=== PATIENT | male | born 1945 | race Native Hawaiian/Other Pacific Islander ===

== ENCOUNTER 2018-02-06 09:30 | Outpatient (CLI) | payer OTHER ==
[2018-02-06 09:45] LABS: PLATELET COUNT 294 K/uL (142-355)
[2018-02-06 10:08] LABS: POTASSIUM 4.1 mmol/L (3.6-5.2)
== END 2018-02-06 23:22 | disposition home or self-care (01) ==
LOC: LABW 09:30
PROVIDERS: Internal Medicine
DX: I10 Essential (primary) hypertension (principal); M10.9 Gout, unspecified; Z12.5 Encounter for screening for malignant neoplasm of prostate; R53.83 Other fatigue
CPT/HCPCS: 36415; 80053; 80061; 84153; 84403; 84439; 84443; 84550; 85027; 86140

== ENCOUNTER 2020-12-24 08:17 | Outpatient (CLI) | payer OTHER ==
[2020-12-24 08:30] LABS: PLATELET COUNT 244 K/uL (142-355)
[2020-12-24 08:59] LABS: POTASSIUM 3.9 mmol/L (3.6-5.2)
== END 2020-12-24 22:44 | disposition home or self-care (01) ==
LOC: LABW 08:17
PROVIDERS: ATTEND Internal Medicine
DX: Z00.00 Encounter for general adult medical examination without abnormal findings (principal); I10 Essential (primary) hypertension; M10.9 Gout, unspecified; K21.9 Gastro-esophageal reflux disease without esophagitis; N40.0 Benign prostatic hyperplasia without lower urinary tract symptoms
CPT/HCPCS: 36415; 80053; 80061; 84153; 84403; 84439; 84443; 85027; 86140

== ENCOUNTER → 2021-07-11 | Outpatient (CLI) | payer OTHER ==
[2021-07-11 08:38] LABS: PLATELET COUNT 259 K/uL (142-355)
== END ==
LOC: LABW 08:24
PROVIDERS: ATTEND Internal Medicine
DX: Z00.00 Encounter for general adult medical examination without abnormal findings (principal); I10 Essential (primary) hypertension; N40.0 Benign prostatic hyperplasia without lower urinary tract symptoms; E03.8 Other specified hypothyroidism; M10.9 Gout, unspecified; E55.9 Vitamin D deficiency, unspecified
CPT/HCPCS: 36415; 80053; 80061; 82306; 84153; 84403; 84439; 84443; 84550; 85027; 86140

== ENCOUNTER 2021-10-31 08:45 | Outpatient (CLI) | payer OTHER | END 2021-10-31 19:07 | disposition home or self-care (01) | LOC: LABW 08:45 | PROVIDERS: ATTEND Internal Medicine | DX: R94.6 Abnormal results of thyroid function studies (principal) | CPT/HCPCS: 36415; 84439; 84443 ==